=== PATIENT | female | born 1970 | race Hispanic/Latino ===

== ENCOUNTER → 2022-08-03 | Day surgery (SDC) | payer BC, OTHER ==
[~2022-08-03] MED LIST: CALCIUM ACETAT667 MG PO; IRON325 M1 PO; LIDOCAINE HCL 2% LOCAL INJ 5 ML SDV VIAL INJ ONE; MIDAZOLAM HCL 2 MG/2 ML VIAL ONE; PROPOFOL IV EMULSION 10 MG/ML 20 ML VIAL ONE; VITAMIN C1000 MG PO; VITAMIN D350 MCG PO
[2022-08-03 14:30] VITALS: BP 141/71
== END | disposition home or self-care (01) ==
LOC: OR 11:58
PROVIDERS: ATTEND Internal Medicine Gastroenterology
DX: Z12.11 Encounter for screening for malignant neoplasm of colon (principal); K63.89 Other specified diseases of intestine; K57.30 Diverticulosis of large intestine without perforation or abscess without bleeding; K64.8 Other hemorrhoids; I10 Essential (primary) hypertension; R00.1 Bradycardia, unspecified; Z01.810 Encounter for preprocedural cardiovascular examination
CPT/HCPCS: 45380; 81025; 93005; J2001; J2250; J2704; 45378